=== PATIENT | male | born 2000 | race Hispanic/Latino ===

== ENCOUNTER 2021-05-24 10:32 | Emergency (ER) | payer OTHER ==
[~2021-05-24] VITALS: Ht 175.3 cm; Wt 72.6 kg
[2021-05-24] MEDS ORDERED: IBUPROFEN 600 MG TAB PO STA (10:47)
[2021-05-24] MEDS ORDERED: IBUPROFEN 600 MG TAB ONE (10:58)
== END 2021-05-24 10:50 | disposition home or self-care (01) ==
LOC: ER 10:42
DX: M25.532 Pain in left wrist (principal); W18.30XA Fall on same level, unspecified, initial encounter; Y93.66 Activity, soccer; Y92.322 Soccer field as the place of occurrence of the external cause
CPT/HCPCS: 99282